=== PATIENT | female | born 1990 | race Caucasian/White ===

== ENCOUNTER → 2019-07-20 | Day surgery (SDC) | payer OTHER ==
[~2019-07-20] MED LIST: KETO10TA2 PO; ORPH100T PO
== END | disposition home or self-care (01) ==
LOC: CIR.AMB 08:02
DX: O02.1 Missed abortion (principal)

== ENCOUNTER 2021-12-27 16:28 | Outpatient (CLI) | payer OTHER ==
[2021-12-27] MEDS ORDERED: PRENATAL CAPLE1 EAC1 PO (16:48)
== END 2021-12-27 22:14 | disposition home or self-care (01) ==
LOC: OBS/DEL 16:28
PROVIDERS: ATTEND Obstetrics & Gynecology
DX: O26.892 Other specified pregnancy related conditions, second trimester (principal); Z3A.24 24 weeks gestation of pregnancy; R10.32 Left lower quadrant pain

== ENCOUNTER 2022-01-14 12:57 | Outpatient (CLI) | payer OTHER ==
[~2022-01-14 12:57] MED LIST changes: +PRENATAL CAPLE1 EAC1 PO
== END 2022-01-14 14:15 | disposition home or self-care (01) ==
LOC: PRENATAL 12:57
PROVIDERS: ATTEND Obstetrics & Gynecology Maternal & Fetal Medicine
DX: O35.9XX0 Maternal care for (suspected) fetal abnormality and damage, unspecified, not applicable or unspecified (principal); O35.3XX0 Maternal care for (suspected) damage to fetus from viral disease in mother, not applicable or unspecified; O34.40 Maternal care for other abnormalities of cervix, unspecified trimester; Z3A.27 27 weeks gestation of pregnancy

== ENCOUNTER 2022-03-27 10:56 | Inpatient (IN) | payer OTHER ==
[~2022-03-27] VITALS: Ht 160 cm; Wt 2.7 kg
== END 2022-04-04 14:06 | disposition home or self-care (01) | DRG 788 ==
LOC: SURH 04-02 09:45 → OB/GYN 04-02 10:03 → SURH 04-02 10:03 → O/R 04-02 10:03 → OB/GYN 04-02 10:07
PROVIDERS: ADMIT Obstetrics & Gynecology; ATTEND Obstetrics & Gynecology
PROC: 4A1HXCZ Monitoring of Products of Conception, Cardiac Rate, External Approach (ICD-10-PCS; 2022-04-02)
PROC: 10D00Z1 Extraction of Products of Conception, Low, Open Approach (ICD-10-PCS; principal; 2022-04-02 09:45)
DX: O32.1XX0 Maternal care for breech presentation, not applicable or unspecified (principal); O99.824 Streptococcus B carrier state complicating childbirth; Z3A.38 38 weeks gestation of pregnancy; Z37.0 Single live birth; Z20.822 Contact with and (suspected) exposure to COVID-19